=== PATIENT | female | born 1955 | race Caucasian/White ===

== ENCOUNTER → 2016-10-18 | Outpatient (CLI) | payer BC ==
--- NOTE | 2016-10-18 16:24 | RADRPT ---
PROCEDURE: XR pelvis/right hip. CLINICAL INDICATION: Hip pain TECHNIQUE: AP pelvis/lateral right hip view available for review. COMPARISON: None available FINDINGS: The osseous structures are normal in mineralization, architecture and alignment. No fractures are i dentified. No osseous lesions are identified. The right and left hip joints are unremarkable. The soft tissues are unremarkable. IMPRESSION: Unremarkable examination RPTAT: HGDB .Eulogio Sheppard MD, MD Date Time Electronically viewed and signed by .Eulogio Sheppard MD, on 10/18/2016 16:23 .B/
--- NOTE | 2016-10-19 12:00 | RADRPT ---
PROCEDURE: Right knee radiographs. CLINICAL INDICATION: Right knee pain. TECHNIQUE: Three views. Weight bearing. Frontal, lateral, and patellar view. COMPARISON: No prior studies are available for comparison. FINDINGS: There is no fracture or dislocation. The soft tissues are normal. There are degenerative changes with osteophytes arising from all 3 joint compartment margins. There is lateral joint compartment narrowing. There is no lytic or blastic lesion. There is no radiopaque foreign body. IMPRESSION: 1. Moderate degenerative changes of the right knee. RPTAT: QQ .Tacos Junior MD, MD Date Time Electronically viewed and signed by .Tacos Junior MD, MD on 10/19/2016 12:00 .R/
--- NOTE | 2016-10-20 04:36 | HKNOTE ---
DATE OF SERVICE: 10/18/2016 MAIN COMPLAINT: 1. Pain in the right buttocks and lower back. 2. Numbness and tingling in the lateral side of her right lower leg. 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 She has had pain now in her lower back and buttocks since February 2016. There is no history of injury. The patient likes to walk. When she started developing muscle pains, her monument installer ordered a creati ne kinase test which was found to be abnormal. She does not normally take any medications except fo r food supplements. She gets pain in the morning when she wakes up, but after a few strides "the pain goes away, and I a m left with stiffness in the hip." The patient's pain is described as being moderate and is aggravated by inactivity. She has tried ta dorina Motrin, and this helps slightly. She does not have any back pain. She occasionally gets numbn ess and tingling in the arch of her right foot. She can walk for 1 to 2 miles without stopping. Angelina alves does not use a walking aid. She does limp some of the time. Her leg lengths feel equal. She arriaga s not have a shoe lift. She can clip her toenails and tie her shoelaces. SPORTING ACTIVITIES: Yoga [continued but slowed down.] PAST ORTHOPEDIC HISTORY: PREVIOUS ORTHOPEDIC OPERATIONS: 1. Two rotator cuff surgeries by Dr. García in 2014. 2. Right fifth toe surgery in 2009. PRIOR CORTISONE INTAKE: None. ALCOHOL INTAKE: Occasional. OTHER JOINT PROBLEMS: Occasionally some pain in the right knee. "Gets shoulder pains." BLOOD TESTS FOR ARTHRITIS: None. PRIOR INJURIES TO HIPS OR KNEES: None. The patient took a fall "last January" but was able to get u p and walk and does not believe that she has any hip symptoms as a result. WORK STATUS: The patient teaches economics and politics. PAST MEDICAL HISTORY: Negative. PAST SURGICAL HISTORY: 1. Two shoulder rotator cuff surgeries in 2004. 2. Right fifth toe surgery 2009. ALLERGIES: NONE. MEDICATIONS: None. FAMILY HISTORY: Father at 66 from heart problems. Mother at 80 from cancer. REVIEW OF SYSTEMS: Postmenopausal. Tingling sensations in her lower extremities when she sits or l ies for too long a period of time. Cramps in her right thigh. TOOTH INSPECTOR: Keely Juarez. PHYSICAL EXAMINATION: GENERAL: The patient is a remarkably fit-looking and youthful 61-year-old female. VITAL SIGNS: Height 5 feet 1, weight 218 pounds. Blood pressure 115/60, temperature 98.4. GAIT: Patient's gait is normal. She walks without a walking aid. BACK: Dynamic pain assessment reveals a pain free range of motion in flexion, extension, lateral be nding, and rotation. Inspection of the spine reveals no list. There is no lumbar paraspinal muscle s pasm. The pelvis is level. Facet stress test is negative bilaterally. Palpation of the spine demonst rates no tenderness of the spinous processes, facet joints, sacroiliac joint, sciatic notch, or post erior thigh. Lateral flexion to the left reproduces her pain in her right buttocks and leg. NEUROLOGIC: Motor examination reveals no muscle deficit in the lower extremities. Deep tendon refle xes in the lower extremities: Right knee jerk plus, left knee jerk plus, right ankle jerk plus, lef t ankle jerk plus. Straight leg raising is negative bilaterally at 80 degrees. Lasegue and CORBY benita ts are negative. RIGHT HIP: A full range of motion without pain. No tenderness anywhere around the right hip. LEFT HIP: A full range of motion without pain. No tenderness anywhere around the left hip. RIGHT KNEE: The right knee shows normal alignment. Active and passive extension is 0 degrees. Activ e and passive flexion is 135 degrees. The medial and lateral collateral ligaments and cruciate ligam ents are intact. Zee test is negative. There is no effusion, tenderness, scarring, crepitus, or cysts. The patella tracks normally. There is no tenderness on the articular surface of the patella o r in the patellar groove. The Q angle is normal. LEFT KNEE: The left knee shows normal alignment. Active and passive extension is 0 degrees. Active and passive flexion is 135 degrees. The medial and lateral collateral ligaments and cruciate ligamen ts are intact. Zee test is negative. There is no effusion, tenderness, scarring, crepitus, or cy sts. The patella tracks normally. There is no tenderness on the articular surface of the patella or in the patellar groove. The Q angle is normal. IMAGING: Plain x-rays of her pelvis and hips obtained today at the [facility] we re reviewed. These show normal hips bilaterally. The lowest lumbar vertebrae seen at the upper end of these x-rays show severe degenerative osteoarthritis between the disks. A CAT scan of her lumbar spine brought with her on a disk was reviewed. These show that she has sev ere scoliosis of the thoracolumbar spine. Lab data from 12/19/2012 from the [facility] were reviewed. Other than elevated CK, no other abnormalities were noted. The patient does have some degree of osteopenia. DIAGNOSES: 1. Low back pain/sciatica. 2. Osteopenia. MANAGEMENT: 1. The patient is being sent for an MRI scan of the lumbar spine. 2. To be referred to Dr. Bonner for a spine consultation. Dictated By: STANLEY WALLACE/ALISIA Conf#: [id number] DID#: [id number]
== END | disposition home or self-care (01) ==
LOC: HKI 14:41
DX: M54.5 Low back pain (principal); M85.80 Other specified disorders of bone density and structure, unspecified site
CPT/HCPCS: 73502; 73562; G0463